=== PATIENT | female | born 1985 | race African-American/Black ===

== ENCOUNTER 2023-01-03 22:48 | Inpatient (IN) | payer OTHER, SELFPAY ==
[~2023-01-03 22:48] MED LIST: Iopamidol-370 76% 500 ML MDV (1 ML CHARGE) ONE
[2023-01-03] MEDS ORDERED: Proparacaine 0.5% Opth 15 ML BOT ONE (23:05)
[2023-01-03] MEDS ORDERED: Fluorescein Opthalmic Strip ONE (23:05)
[2023-01-03 23:10] LABS: Hemoglobin 8.8 g/dL (12.0-16.0); Mean Corpuscular HGB CONC 28.4 g/dL (32.0-36.0); Mean Corpuscular Hemoglobin 22.8 pg (27.0-31.0); Mean Corpuscular Volume 80.3 fl (78.0-98.0); Mean Platelet Volume 9.9 fL (7.4-10.4); Platelet Count 303 10x3/uL (130-400); RBC Distribution Width 19.5 % (11.5-14.5); Red Blood Cell (RBC) Count 3.86 mill/uL (4.20-5.40); White Blood Cell (WBC) Count 15.7 10x3/uL (4.8-10.8)
[2023-01-03 23:12] LABS: Delete Auto Diff?? YES; Manual Diff?? YES
[2023-01-03] MEDS ORDERED: Ondansetron PF 4 MG/2 ML Vial ONE (23:16)
[2023-01-03 23:24] LABS: Prothrombin Time 13.4 sec (12.0-14.7)
[2023-01-03 23:25] LABS: PTT 18.7 sec (22.9-36.1)
[2023-01-03 23:33] LABS: Anisocytosis SLIGHT = 6-15 cells HPF (0-5); CellaVision Operator ID lab.sh2; Eosinophils 1 % (0-10); Hypochromia SLIGHT = 6-15 cells HPF (0-5); Lymphocytes 40 % (21-51); Macrocytosis SLIGHT = 6-15 cells HPF (0-5); Monocytes 3 % (0-10); Neutrophil 56 % (42-75); Ovalocytes SLIGHT = 2-5 cells HPF (0-1); Platelet Adequacy Comment Platelets Normal; Polychromasia SLIGHT = 2-3 cells HPF (0-2); Smudge Cells 8.1 %; Tear Drops SLIGHT = 2-5 cells HPF (0-1); Total Cell Count 99; Vacuoles SLIGHT
[2023-01-03] MEDS ORDERED: Ketorolac Tromethamine 30 MG/ML VIAL ONE (23:37)
[2023-01-03 23:40] LABS: ALT (SGPT) 51 U/L (8-55); AST (SGOT) 143 U/L (5-34); Acetaminophen Less than 10 mcg/mL (10.0-30.0); Albumin 3.8 g/dL (3.5-5.0); Alkaline Phosphatase 76 U/L (40-110); Anion Gap 16 mmol/L (10-20); BUN (Urea Nitrogen) 13 mg/dL (7.0-18.7); Bilirubin, Total Less than 0.2 mg/dL (0.2-1.2); Calc. Creatinine Clearance 0 mL/min (70-130); Calcium 8.2 mg/dL (7.8-10.44); Carbon Dioxide 14 mmol/L (22-29); Chloride 109 mmol/L (98-107); Estimated GFR 79; Globulin 3.1 g/dL (2.4-3.5); Glucose 145 mg/dL (70-105); Lipase 74 U/L (8-78); Potassium 3.4 mmol/L (3.5-5.1); Protein, Total 6.9 g/dL (6.0-8.3); Salicylate Less than 8.0 mg/dL (15.0-30.0); Sodium 136 mmol/L (136-145)
[2023-01-03] MEDS ORDERED: Lidocaine 1% w/Epinephrine 1:100K 20 ML VIAL ONE ×2 (23:40→23:43)
[2023-01-03 23:44] LABS: Troponin I Less than 0.010 ng/mL (< 0.028)
[2023-01-03] MEDS ORDERED: Morphine 4 MG/ML VIAL ONE (23:47)
[2023-01-04] MEDS ORDERED: Bacitracin 1 PK ONE (00:12)
[2023-01-04] MEDS ORDERED: Ipratropium/Albuterol 3 ML NEB NEB PRN (00:23)
[2023-01-04] MEDS ORDERED: Ondansetron PF 4 MG/2 ML Vial IVP PRN (00:23)
[2023-01-04] MEDS ORDERED: Morphine 2 MG/ML VIAL SLOW IVP PRN (00:27)
[2023-01-04] MEDS ORDERED: Ampicillin/Sulbactam 1.5 GM in Sodium Chloride 0.9% 100 ML IVPB SCH (01:00)
[2023-01-04] MEDS: Morphine 2 MG/ML VIAL SLOW IVP PRN ×2 (02:22→10:06)
[2023-01-04] MEDS: Sodium Chloride 0.9% 1,000 ML IV SCH ×3 (02:25→21:02)
[2023-01-04] MEDS: Polyvinyl Alcohol 1.4%/Povidone 0.6% Opth Drops R EYE SCH ×2 (02:54→03:02)
[2023-01-04 03:00] LABS: #Monocytes 1.1 thou/uL (0.11-0.59); #Neutrophils 17.8 thou/uL (1.40-6.50); %Basophils 0.2 % (0.0-1.0); %Eosinophils 0.1 % (0.0-10.0); %Lymphocytes 4.2 % (21.0-51.0); %Monocytes 5.7 % (0.0-10.0); %Neutrophils 89.3 % (42.0-75.0); Hematocrit 27.5 % (36.0-47.0); Hemoglobin 8.2 g/dL (12.0-16.0); Mean Corpuscular HGB CONC 29.8 g/dL (32.0-36.0); Mean Corpuscular Hemoglobin 23.2 pg (27.0-31.0); Mean Platelet Volume 9.7 fL (7.4-10.4); Platelet Count 268 10x3/uL (130-400); RBC Distribution Width 18.9 % (11.5-14.5); Red Blood Cell (RBC) Count 3.54 mill/uL (4.20-5.40); White Blood Cell (WBC) Count 19.9 10x3/uL (4.8-10.8)
[2023-01-04] MEDS: Cyclobenzaprine 10 MG TAB PO PRN (03:02)
[2023-01-04 03:03] LABS: Mean Corpuscular Volume 77.7 fl (78.0-98.0)
[2023-01-04] MEDS: traMADol HCl 50 MG TAB PO PRN ×2 (03:14→09:22)
[2023-01-04 03:20] LABS: PTT 23.8 sec (22.9-36.1); Prothrombin Time 14.1 sec (12.0-14.7)
[2023-01-04 03:31] LABS: Lactic Acid 1.7 mmol/L (0.5-2.2)
[2023-01-04 03:34] LABS: Anion Gap 12 mmol/L (10-20); BUN (Urea Nitrogen) 13 mg/dL (7.0-18.7); Calc. Creatinine Clearance 0 mL/min (70-130); Calcium 8.1 mg/dL (7.8-10.44); Carbon Dioxide 20 mmol/L (22-29); Chloride 109 mmol/L (98-107); Estimated GFR 96; Glucose 106 mg/dL (70-105); Potassium 3.6 mmol/L (3.5-5.1); Sodium 137 mmol/L (136-145)
[2023-01-04 04:06] VITALS: BMI 30.8
[2023-01-04] MEDS: traMADol HCl 50 MG TAB PO SCH ×4 (05:09→23:46)
[2023-01-04] MEDS: Acetaminophen 500 MG TAB PO SCH ×4 (05:09→23:46)
[2023-01-04] MEDS: Gabapentin 300 MG CAP PO SCH ×3 (08:30→21:03)
[2023-01-04] MEDS: Famotidine/PF 20 mg/2ml Vial SLOW IVP SCH ×2 (08:30→21:03)
[2023-01-04] MEDS: Senokot S 8.6-50 MG TAB PO SCH ×2 (08:31→21:03)
[2023-01-04] MEDS: Polyethylene Glycol 3350 17 GM Packet PO SCH (08:31)
[2023-01-04] MEDS: Ampicillin/Sulbactam 1.5 GM in Sodium Chloride 0.9% 100 ML IVPB SCH ×3 (12:06→23:47)
[2023-01-05] MEDS: Ampicillin/Sulbactam 1.5 GM in Sodium Chloride 0.9% 100 ML IVPB SCH ×4 (05:47→23:20)
[2023-01-05] MEDS: traMADol HCl 50 MG TAB PO SCH ×4 (05:47→23:21)
[2023-01-05] MEDS: Acetaminophen 500 MG TAB PO SCH ×4 (05:48→23:20)
[2023-01-05] MEDS: Gabapentin 300 MG CAP PO SCH ×3 (08:28→21:13)
[2023-01-05] MEDS: Polyethylene Glycol 3350 17 GM Packet PO SCH (08:28)
[2023-01-05] MEDS: Senokot S 8.6-50 MG TAB PO SCH ×2 (08:28→21:14)
[2023-01-05] MEDS: Famotidine/PF 20 mg/2ml Vial SLOW IVP SCH ×2 (08:30→21:13)
[2023-01-05 09:04] LABS: #Eosinphils 0.2 thou/uL (0.0-0.7); #Monocytes 0.4 thou/uL (0.11-0.59); #Neutrophils 4.7 thou/uL (1.40-6.50); %Basophils 0.3 % (0.0-1.0); %Eosinophils 2.3 % (0.0-10.0); %Lymphocytes 23.9 % (21.0-51.0); %Neutrophils 67.2 % (42.0-75.0); Hematocrit 22.8 % (36.0-47.0); Hemoglobin 6.5 g/dL (12.0-16.0); Mean Corpuscular HGB CONC 28.5 g/dL (32.0-36.0); Mean Corpuscular Hemoglobin 22.5 pg (27.0-31.0); Mean Corpuscular Volume 78.9 fl (78.0-98.0); Platelet Count 178 10x3/uL (130-400); RBC Distribution Width 19.5 % (11.5-14.5); Red Blood Cell (RBC) Count 2.89 mill/uL (4.20-5.40)
[2023-01-05 09:58] LABS: CellaVision Operator ID LAB.GE; Hypochromia MODERATE=16-30 cells HPF (0-5); Large Platelets 3.9 % (0-5); Microcytosis SLIGHT = 6-15 cells HPF (0-5); Ovalocytes SLIGHT = 2-5 cells HPF (0-1); Platelet Adequacy Comment Platelets Normal; Polychromasia SLIGHT = 2-3 cells HPF (0-2)
[2023-01-05] MEDS: Scopolamine 1.5 mg/72 hour Patch TD SCH (10:41)
[2023-01-05 10:52] LABS: Hematocrit 22.5 % (36.0-47.0); Hemoglobin 6.5 g/dL (12.0-16.0)
[2023-01-05] MEDS ORDERED: Senokot S 8.6-50 MG TAB PO SCH (21:00)
[2023-01-06] MEDS: Acetaminophen 500 MG TAB PO SCH ×4 (05:24→23:30)
[2023-01-06] MEDS: traMADol HCl 50 MG TAB PO SCH ×4 (05:24→23:31)
[2023-01-06] MEDS: Ampicillin/Sulbactam 1.5 GM in Sodium Chloride 0.9% 100 ML IVPB SCH ×4 (05:25→23:32)
[2023-01-06 06:12] LABS: #Eosinphils 0.3 thou/uL (0.0-0.7); #Monocytes 0.5 thou/uL (0.11-0.59); #Neutrophils 4.9 thou/uL (1.40-6.50); %Basophils 0.5 % (0.0-1.0); %Eosinophils 3.6 % (0.0-10.0); %Lymphocytes 24.8 % (21.0-51.0); %Neutrophils 63.5 % (42.0-75.0); Hematocrit 28.9 % (36.0-47.0); Hemoglobin 8.9 g/dL (12.0-16.0); Mean Corpuscular HGB CONC 30.8 g/dL (32.0-36.0); Mean Corpuscular Hemoglobin 24.8 pg (27.0-31.0); Mean Corpuscular Volume 80.5 fl (78.0-98.0); Mean Platelet Volume 9.8 fL (7.4-10.4); Platelet Count 186 10x3/uL (130-400); RBC Distribution Width 18.3 % (11.5-14.5); Red Blood Cell (RBC) Count 3.59 mill/uL (4.20-5.40); White Blood Cell (WBC) Count 7.7 10x3/uL (4.8-10.8)
[2023-01-06] MEDS: Famotidine/PF 20 mg/2ml Vial SLOW IVP SCH ×2 (08:19→21:02)
[2023-01-06] MEDS: Gabapentin 300 MG CAP PO SCH ×3 (08:19→21:01)
[2023-01-06] MEDS: Polyethylene Glycol 3350 17 GM Packet PO SCH (08:20)
[2023-01-06] MEDS: Senokot S 8.6-50 MG TAB PO SCH ×2 (08:20→21:00)
[2023-01-06] MEDS ORDERED: Polyethylene Glycol 3350 17 GM Packet PO SCH (09:00)
[2023-01-06] MEDS: Morphine 2 MG/ML VIAL SLOW IVP PRN (09:11)
[2023-01-07] MEDS: Ampicillin/Sulbactam 1.5 GM in Sodium Chloride 0.9% 100 ML IVPB SCH ×2 (05:28→13:09)
[2023-01-07] MEDS: Acetaminophen 500 MG TAB PO SCH ×2 (05:28→13:07)
[2023-01-07] MEDS: traMADol HCl 50 MG TAB PO SCH ×2 (05:29→13:08)
[2023-01-07] MEDS ORDERED: fentaNYL PF 100 MCG/2 ML SYRINGE ONE (06:54)
[2023-01-07] MEDS ORDERED: Oxymetazoline HCl 0.05% (30 ML BOT) ONE ×2 (06:55→07:18)
[2023-01-07] MEDS ORDERED: Lidocaine 2% 6 ML (Jelly) SYR ONE (06:55)
[2023-01-07] MEDS ORDERED: Dexmedetomidine 200 MCG/2 ML VIAL ONE (06:55)
[2023-01-07] MEDS ORDERED: Magnesium 5 GM/10 ML VIAL ONE (06:55)
[2023-01-07] MEDS ORDERED: Bacitracin Zinc Ointment 30 gm TUBE ONE (07:00)
[2023-01-07] MEDS ORDERED: Lidocaine 1% (PF) 30 ML VIAL ONE (07:00)
[2023-01-07] MEDS ORDERED: Hydrocortisone 1% Cream 30 GM TUBE ONE (07:00)
[2023-01-07] MEDS ORDERED: Bupivacaine 0.25% HCL 30 ML VIAL ONE (07:00)
[2023-01-07] MEDS ORDERED: EPINEPHrine 1 MG/ML AMP ONE (07:00)
[2023-01-07] MEDS ORDERED: Chlorhexidine Gluconate 15 ML UDCUP SSP ONE (07:00)
[2023-01-07] MEDS ORDERED: Vancomycin 1 GM VIAL ONE (07:00)
[2023-01-07] MEDS ORDERED: Midazolam HCl 2 mg/2 ml Vial ONE (07:21)
[2023-01-07] MEDS ORDERED: Famotidine/PF 20 mg/2ml Vial ONE (07:21)
[2023-01-07] MEDS ORDERED: MINERAL OIL/WHITE PETROLATUM 3.5 GM TUBE ONE (07:31)
[2023-01-07] MEDS ORDERED: NEOSTIGMINE 3 MG/3 ML SYR 3 MG/3 ML SYRINGE ONE (07:46)
[2023-01-07] MEDS ORDERED: Dexamethasone 20 MG/5 ML VIAL ONE (07:46)
[2023-01-07] MEDS ORDERED: PROPOFOL 200 MG/20 ML VIAL ONE (07:46)
[2023-01-07] MEDS ORDERED: Ondansetron PF 4 MG/2 ML Vial ONE (07:46)
[2023-01-07] MEDS ORDERED: Lidocaine 1% PF 5 ML VIAL ONE (07:46)
[2023-01-07] MEDS ORDERED: Glycopyrrolate 0.2 MG/ML 5 ML SYRINGE ONE (07:46)
[2023-01-07] MEDS ORDERED: Rocuronium Bromide 10 MG/ML (10ML VIAL) ONE (07:46)
[2023-01-07] MEDS ORDERED: fentaNYL 50 mcg/mL 1 mL Vial ONE ×2 (09:59→11:37)
[2023-01-07] MEDS: Gabapentin 300 MG CAP PO SCH ×3 (10:06→20:33)
[2023-01-07] MEDS: Polyethylene Glycol 3350 17 GM Packet PO SCH (10:06)
[2023-01-07] MEDS: Famotidine/PF 20 mg/2ml Vial SLOW IVP SCH ×2 (10:06→20:34)
[2023-01-07] MEDS: Senokot S 8.6-50 MG TAB PO SCH ×2 (10:07→20:35)
[2023-01-07] MEDS ORDERED: Ondansetron HCl/PF 4 MG/2 ML Vial IVP PRN (11:19)
[2023-01-07] MEDS ORDERED: Promethazine HCl 25 MG/ML VIAL IM PRN (11:19)
[2023-01-07] MEDS: Morphine 2 MG/ML VIAL SLOW IVP PRN ×2 (14:44→20:34)
[2023-01-07] MEDS ORDERED: hydrALAZINE 20 MG/ML VIAL SLOW IVP PRN (16:01)
[2023-01-07] MEDS ORDERED: Ketorolac Tromethamine 30 MG/ML VIAL IVP SCH (16:15)
[2023-01-07] MEDS: Acetaminophen W/ Codeine 5 ML UDCUP PO SCH ×2 (16:24→20:34)
[2023-01-07] MEDS: Acetaminophen 650 MG/20.3 ML UDCUP PO SCH (16:25)
[2023-01-07 17:13] LABS: #Monocytes 0.1 thou/uL (0.11-0.59); #Neutrophils 11.3 thou/uL (1.40-6.50); %Basophils 0.1 % (0.0-1.0); %Monocytes 1.1 % (0.0-10.0); %Neutrophils 93.2 % (42.0-75.0); Hematocrit 36.7 % (36.0-47.0); Hemoglobin 11.1 g/dL (12.0-16.0); Mean Corpuscular HGB CONC 30.2 g/dL (32.0-36.0); Mean Corpuscular Hemoglobin 24.6 pg (27.0-31.0); Mean Corpuscular Volume 81.2 fl (78.0-98.0); Mean Platelet Volume 10.2 fL (7.4-10.4); Platelet Count 257 10x3/uL (130-400); RBC Distribution Width 19.4 % (11.5-14.5); Red Blood Cell (RBC) Count 4.52 mill/uL (4.20-5.40); White Blood Cell (WBC) Count 12.1 10x3/uL (4.8-10.8)
[2023-01-07] MEDS: Cyclobenzaprine 10 MG TAB PO PRN (20:33)
[2023-01-07] MEDS: Amoxicillin/Potassium Clav 500 MG TAB PO SCH (20:34)
[2023-01-07] MEDS: Chlorhexidine Gluconate 15 ML UDCUP SSP SCH (20:34)
[2023-01-08] MEDS: Acetaminophen W/ Codeine 5 ML UDCUP PO SCH ×5 (01:27→16:42)
[2023-01-08] MEDS: Acetaminophen 650 MG/20.3 ML UDCUP PO SCH ×4 (01:28→16:41)
[2023-01-08] MEDS: Ketorolac Tromethamine 30 MG/ML VIAL IVP SCH ×4 (01:28→17:56)
[2023-01-08] MEDS: Senokot S 8.6-50 MG TAB PO SCH (08:46)
[2023-01-08] MEDS: Amoxicillin/Potassium Clav 500 MG TAB PO SCH (08:46)
[2023-01-08] MEDS: Gabapentin 300 MG CAP PO SCH ×2 (08:47→15:05)
[2023-01-08] MEDS: Polyethylene Glycol 3350 17 GM Packet PO SCH (08:48)
[2023-01-08] MEDS: Famotidine/PF 20 mg/2ml Vial SLOW IVP SCH (08:48)
[2023-01-08] MEDS ORDERED: Morphine 4 MG/ML VIAL SLOW IVP SCH (09:15)
[2023-01-08] MEDS: Chlorhexidine Gluconate 15 ML UDCUP SSP SCH (09:36)
[2023-01-08] MEDS: Scopolamine 1.5 mg/72 hour Patch TD SCH (09:41)
[2023-01-08 20:21] VITALS: BP 136/74; TEMP 98
== END 2023-01-08 21:20 | disposition home or self-care (01) | DRG 142 ==
LOC: ERS 22:48 → SURG A 01-04 00:27
PROVIDERS: ADMIT Surgery; ATTEND Surgery
PROC: 30233N1 Transfusion of Nonautologous Red Blood Cells into Peripheral Vein, Percutaneous Approach (ICD-10-PCS; 2023-01-05)
PROC: 0NST04Z Reposition Right Mandible with Internal Fixation Device, Open Approach (ICD-10-PCS; principal; 2023-01-07)
PROC: 0NSV04Z Reposition Left Mandible with Internal Fixation Device, Open Approach (ICD-10-PCS; 2023-01-07)
PROC: 0JC10ZZ Extirpation of Matter from Face Subcutaneous Tissue and Fascia, Open Approach (ICD-10-PCS; 2023-01-07)
PROC: 0CDWXZ1 Extraction of Upper Tooth, Multiple, External Approach (ICD-10-PCS; 2023-01-07)
PROC: 0HQ1XZZ Repair Face Skin, External Approach (ICD-10-PCS; 2023-01-07)
PROC: 3E033XZ Introduction of Vasopressor into Peripheral Vein, Percutaneous Approach (ICD-10-PCS; 2023-01-07)
DX: S02.651A Fracture of angle of right mandible, initial encounter for closed fracture (principal); S02.66XA Fracture of symphysis of mandible, initial encounter for closed fracture; S02.5XXA Fracture of tooth (traumatic), initial encounter for closed fracture; S01.421A Laceration with foreign body of right cheek and temporomandibular area, initial encounter; S71.111A Laceration without foreign body, right thigh, initial encounter; D64.9 Anemia, unspecified; F17.210 Nicotine dependence, cigarettes, uncomplicated; F10.90 Alcohol use, unspecified, uncomplicated; V49.9XXA Car occupant (driver) (passenger) injured in unspecified traffic accident, initial encounter; S01.01XA Laceration without foreign body of scalp, initial encounter; S31.113A Laceration without foreign body of abdominal wall, right lower quadrant without penetration into peritoneal cavity, initial encounter; Z79.899 Other long term (current) drug therapy
CPT/HCPCS: 36415; 36430; 70450; 70486; 71045; 71260; 72125; 74177; 80048; 80307; 83605; 83690; 84484; 85025; 85610; 85730; 86850; 86900; 86901; 97139; C1713; G0390; J0171; J0295; J0360; J1100; J1650; J1885; J2001; J2250; J2270; J2272; J2405; J2704; J3010; J3370; J3475; J3490; J7050; P9016; Q9967; S0020; S0028

== ENCOUNTER 2023-01-11 09:45 | Emergency (ER) | payer SELFPAY | END 2023-01-11 11:40 | disposition home or self-care (01) | LOC: ERS 09:45 | DX: S81.801D Unspecified open wound, right lower leg, subsequent encounter (principal); W18.30XD Fall on same level, unspecified, subsequent encounter | CPT/HCPCS: 99282 ==

== ENCOUNTER 2023-01-16 15:44 | Emergency (ER) | payer SELFPAY | END 2023-01-16 16:56 | disposition home or self-care (01) | LOC: ERS 15:44 | DX: S71.101D Unspecified open wound, right thigh, subsequent encounter (principal); F17.210 Nicotine dependence, cigarettes, uncomplicated; W18.30XD Fall on same level, unspecified, subsequent encounter | CPT/HCPCS: 99282 ==

== ENCOUNTER 2023-01-18 10:52 | Emergency (ER) | payer SELFPAY | END 2023-01-18 14:08 | disposition home or self-care (01) | LOC: ERS 10:52 | DX: Z48.01 Encounter for change or removal of surgical wound dressing (principal); F17.210 Nicotine dependence, cigarettes, uncomplicated | CPT/HCPCS: 99283 ==

== ENCOUNTER 2023-02-18 10:39 | Emergency (ER) | payer SELFPAY | END 2023-02-18 14:02 | disposition home or self-care (01) | LOC: ERS 10:39 | DX: Z48.01 Encounter for change or removal of surgical wound dressing (principal); F17.210 Nicotine dependence, cigarettes, uncomplicated | CPT/HCPCS: 99283 ==